=== PATIENT | male | born 1990 | race Caucasian/White ===

== ENCOUNTER 2017-03-02 11:14 | Emergency (ER) | payer OTHER ==
[~2017-03-02] VITALS: Ht 170.2 cm; Wt 88.5 kg
[2017-03-02 12:59] VITALS: BP 111/56
== END 2017-03-02 12:59 | disposition home or self-care (01) ==
LOC: ED 11:14
DX: S43.401A Unspecified sprain of right shoulder joint, initial encounter (principal); M54.2 Cervicalgia; X58.XXXA Exposure to other specified factors, initial encounter; Y93.89 Activity, other specified; Y99.8 Other external cause status; Y92.89 Other specified places as the place of occurrence of the external cause
CPT/HCPCS: Q0092